=== PATIENT | male | born 1980 | race Two or more races ===

== ENCOUNTER 2016-10-20 20:44 | Emergency (ER) | payer OTHER ==
[~2016-10-20 20:44] MED LIST: RISO02 PO
== END 2016-10-20 22:00 | disposition left against medical advice (07) ==
LOC: ER 21:55
DX: R10.9 Unspecified abdominal pain (principal); Z53.21 Procedure and treatment not carried out due to patient leaving prior to being seen by health care provider

== ENCOUNTER 2023-02-22 00:40 | Emergency (ER) | payer OTHER ==
[~2023-02-22] VITALS: Ht 175.3 cm; Wt 129.0 kg
[2023-02-22 01:08] VITALS: BP 156/98; PULSE 86; RESP 20; TEMP 98.2; O2SAT 99
[2023-02-22] MEDS ORDERED: KETOROLAC 60MG/2ML VIAL IM ONE (01:30)
[2023-02-22 01:33] LABS: HEMATOCRIT 42.6 % (42.0-52.0); HEMOGLOBIN 14.2 g/dL (14.0-18.0); MEAN CORPUSCULAR HEMOGLOBIN 27.4 pg (28.0-32.0); MEAN CORPUSCULAR HGB CONC 33.4 g/dL (31.0-37.0); PLATELET 245 x1000/uL (130-400); RED BLOOD CELL COUNT 5.19 mill/uL (4.7-6.1); RED CELL DISTRIBUTION WIDTH 14.5 % (11.6-14.6); WHITE BLOOD COUNT 11.5 x1000/uL (4.5-11.0)
[2023-02-22 01:44] LABS: CHLORIDE 110 mEq/L (98-107); INDEX HEMOLYSI 1 (1-3); INDEX ICTERIC 1 (1-4); INDEX LIPEMIC 1 (1-3); POTASSIUM 3.9 mEq/L (3.5-5.1); SODIUM 139 mEq/L (136-145)
[2023-02-22 01:53] LABS: ALANINE AMINOTRANSFERASE 30 IU/L (13-61); ALBUMIN 2.9 g/dL (3.4-5.0); ASPARTATE AMINOTRANSFERASE 19 IU/L (15-37); BILIRUBIN TOTAL 0.2 mg/dL (0.1-1.0); CALCIUM 8.4 mg/dL (8.5-10.1); CARBON DIOXIDE 25 mEq/L (21-32); CREATININE 0.8 mg/dL (0.6-1.3); GLUCOSE 120 mg/dL (70-105); PROTEIN TOTAL 7.1 g/dL (6.0-8.3); UREA NITROGEN BLOOD 17 mg/dL (7-21)
[2023-02-22] MEDS ORDERED: HYDR-4001 MT (07:38)
[2023-02-22] MEDS ORDERED: METH-653 MT (07:38)
[2023-02-22] MEDS ORDERED: IBUP-2029 MT (07:38)
== END 2023-02-22 08:12 | disposition home or self-care (01) ==
LOC: ER 00:40
DX: M54.9 Dorsalgia, unspecified (principal)
CPT/HCPCS: 99283; 80053; 85027; 36415; 96372; J1885